=== PATIENT | female | born 1955 | race African-American/Black ===

== ENCOUNTER 2016-07-08 17:40 | Inpatient (IN) | payer MEDICARE, MEDICAID ==
[~2016-07-08] VITALS: Ht 152.4 cm; Wt 59.0 kg
[~2016-07-08 17:40] MED LIST: AMOX500T2 PO; ASPI-867 PO; ATOR40TA70 PO; CARB200T6 PO; CLOP75TA33 PO; FERR-43 PO; LEVE1000 PO; LISI-604 PO
[2016-07-08] MEDS ORDERED: LEVETIRACETAM 500MG PREMIX 100 ML IV ONE (18:30)
[2016-07-08 19:11] LABS: CLARITY URINE CLEAR (CLEAR); COLOR URINE YELLOW (YELLOW); GLUCOSE URINE NEGATIVE (NEGATIVE); KETONES URINE NEGATIVE (NEGATIVE); LEUKOCYTE ESTERASE URINE TRACE (NEGATIVE); NITRITE URINE NEGATIVE (NEGATIVE); OCCULT BLOOD URINE NEGATIVE (NEGATIVE); PH URINE 6.5 (4.5-8.0); PROTEIN URINE NEGATIVE (NEGATIVE); SPECIFIC GRAVITY URINE 1.012 (1.005-1.030); UROBILINOGEN URINE 0.2 E.U./dL (0.2-1.0)
[2016-07-08 19:32] LABS: BASOPHILS % 0.7 % (0.0-2.0); DIFFERENTIAL COMMENT 0; EOSINOPHILS % 0.2 % (0.0-5.0); HEMATOCRIT. 38.7 % (36.0-48.0); HEMOGLOBIN. 12.9 g/dL (12.0-16.0); LYMPHOCYTES % 14.8 % (20.0-50.0); MEAN CORPUSCULAR HEMOGLOBIN 33.8 pg (28.0-32.0); MEAN CORPUSCULAR HGB CONC 33.5 g/dL (31.0-37.0); MEAN CORPUSCULAR VOLUME 101.1 fL (81.0-99.0); MEAN PLATELET VOLUME 6.3 fl (7.4-10.4); MONOCYTES % 7.9 % (2.0-8.0); NEUTROPHILS % 76.4 % (40.0-76.0); PLATELET 246 x1000/uL (130-400); RED BLOOD CELL COUNT 3.82 mill/uL (4.2-5.4); RED CELL DISTRIBUTION WIDTH 13.6 % (11.6-14.6); WHITE BLOOD COUNT 10.2 x1000/uL (4.5-11.0)
[2016-07-08 19:37] LABS: PROTHROMBIN TIME 10.5 sec
[2016-07-08 19:39] LABS: ALBUMIN 4.3 g/dL (3.4-5.0); ANION GAP 16; CARBON DIOXIDE 26 mEq/L (21-32); CHLORIDE 94 mEq/L (98-107); INDEX HEMOLYSI 1 (1-3); INDEX ICTERIC 1 (1-4); INDEX LIPEMIC 1 (1-3); UREA NITROGEN BLOOD 10 mg/dL (7-21)
[2016-07-08 19:39] LABS: BACTERIA URINE 2+; RBC URINE NONE SEEN /hpf (0-2); SQUAMOUS EPITHELIAL CELL URINE RARE /lpf (RARE/1+); WBC URINE 0-2 /hpf (0-2)
[2016-07-08 19:44] LABS: ALANINE AMINOTRANSFERASE 28 IU/L (13-61); eGFR > 60 mL/min (>60)
[2016-07-08] MEDS ORDERED: TRAMADOL 50MG TABLET PO PRN (21:00)
[2016-07-08] MEDS ORDERED: MAGNESIUM/ALUMINUM HYDROXIDE/SIMETHICONE 30ML UDC PO PRN (21:00)
[2016-07-08] MEDS ORDERED: ONDANSETRON HCL 4MG/2ML VIAL IV PRN (21:00)
[2016-07-08] MEDS ORDERED: ACETAMINOPHEN 325MG TABLET PO PRN (21:00)
[2016-07-08] MEDS ORDERED: GUAIFENESIN 200MG/10ML SUGAR FREE UDC PO PRN (21:00)
[2016-07-08] MEDS ORDERED: DIPHENHYDRAMINE 50MG/ML VIAL IV PRN (21:00)
[2016-07-08] MEDS ORDERED: IPRATROPIUM/ALBUTEROL 0.5-3(2.5)MG/3ML NEB INH PRN (21:00)
[2016-07-08] MEDS ORDERED: CLONIDINE 0.1MG TABLET PO PRN (21:00)
[2016-07-08] MEDS ORDERED: LORAZEPAM 2MG/ML CPJ IV PRN (21:00)
[2016-07-08] MEDS ORDERED: NITROGLYCERIN 0.4MG TABLET SL SL PRN (21:00)
[2016-07-08] MEDS ORDERED: ZOLPIDEM TARTRATE 5MG TABLET PO PRN (22:30)
[2016-07-08 22:53] LABS: CREATINE KINASE 114 IU/L (26-192); CREATINE KINASE MB FRACTION 0.9 ng/mL (0.5-3.6); INDEX HEMOLYSI 1 (1-3); TROPONIN I < 0.02 ng/mL (0.00-0.04)
[2016-07-08] MEDS ORDERED: NA PHOS,M-B/NA PHOS,DI-BA ENEMA 118ML PR PRN (23:00)
[2016-07-08] MEDS: ATORVASTATIN CALCIUM 10MG TABLET PO SCH (23:06)
[2016-07-08] MEDS ORDERED: LIDOCAINE HCL/EPINEPHRINE 1%-EPI 1:100,000 30 ML VIAL INFIL ONE (23:15)
[2016-07-09] VITALS: BP 147/74
[2016-07-09] LABS: FOLIC ACID (FOLATE) SERUM > 20.00 ng/mL (>5.38); INDEX HEMOLYSI 4 (1-3); VITAMIN B12 SERUM 702 pg/mL (211-911)
[2016-07-09 04:00] VITALS: BP 101/64
[2016-07-09 05:00] LABS: *AMPHETAMINES SCREEN URINE NEGATIVE (NEGATIVE); *BARBITURATES SCREEN URINE NEGATIVE (NEGATIVE); *BENZODIAZEPINES SCREEN URINE NEGATIVE (NEGATIVE); *COCAINE SCREEN URINE NEGATIVE (NEGATIVE); CANNABINOID URINE SCREEN NEGATIVE (NEGATIVE); ECSTASY MDMA SCREEN URINE NEGATIVE (NEGATIVE); METHADONE URINE SCREEN NEGATIVE (NEGATIVE); OPIATES URINE SCREEN NEGATIVE (NEGATIVE); PHENCYCLIDINE URINE SCREEN NEGATIVE (NEGATIVE)
[2016-07-09 07:13] LABS: INDEX HEMOLYSI 1 (1-3)
[2016-07-09 07:14] LABS: CREATINE KINASE 117 IU/L (26-192); CREATINE KINASE MB FRACTION 0.6 ng/mL (0.5-3.6); TROPONIN I < 0.02 ng/mL (0.00-0.04)
[2016-07-09] MEDS ORDERED: CARBAMAZEPINE 100MG TABLET CHEW PO SCH (08:10)
[2016-07-09] MEDS: LISINOPRIL 20MG TABLET PO SCH ×2 (09:00→21:00)
[2016-07-09] MEDS ORDERED: PHENYTOIN SODIUM 1,000 MG in SODIUM CHLORIDE 0.9% 100 ML IV NR (11:00)
[2016-07-09 12:00] VITALS: BP 96/47
[2016-07-09] MEDS: CLOPIDOGREL 75MG TABLET PO SCH (13:04)
[2016-07-09] MEDS: ENOXAPARIN 40MG/0.4ML SYR SUBCUT SCH (13:04)
[2016-07-09] MEDS: PANTOPRAZOLE SODIUM 40 MG/VIAL IV SCH (13:05)
[2016-07-09] MEDS: ASPIRIN 325MG EC TABLET PO SCH (13:05)
[2016-07-09] MEDS: LEVETIRACETAM 500MG TABLET PO SCH ×2 (13:05→21:39)
[2016-07-09] MEDS: ZINC SULFATE 220 MG ( 50 ) CAPSULE PO SCH (13:05)
[2016-07-09 16:00] VITALS: BP 104/66
[2016-07-09] MEDS ORDERED: CARBAMAZEPINE 200MG TABLET PO SCH (18:10)
[2016-07-09 20:00] VITALS: BP 108/64
[2016-07-09] MEDS: ATORVASTATIN CALCIUM 10MG TABLET PO SCH (21:38)
[2016-07-10] VITALS: BP 107/76
[2016-07-10 04:00] VITALS: BP 101/67
[2016-07-10 08:00] VITALS: BP 102/65
[2016-07-10] MEDS: LEVETIRACETAM 500MG TABLET PO SCH ×2 (08:34→21:00)
[2016-07-10] MEDS: CLOPIDOGREL 75MG TABLET PO SCH (08:34)
[2016-07-10] MEDS: PANTOPRAZOLE SODIUM 40 MG/VIAL IV SCH (08:34)
[2016-07-10] MEDS: ZINC SULFATE 220 MG ( 50 ) CAPSULE PO SCH (08:34)
[2016-07-10] MEDS: ASPIRIN 325MG EC TABLET PO SCH (08:34)
[2016-07-10] MEDS: LISINOPRIL 20MG TABLET PO SCH ×2 (08:34→20:56)
[2016-07-10] MEDS: ENOXAPARIN 40MG/0.4ML SYR SUBCUT SCH (08:34)
[2016-07-10] MEDS: CARBAMAZEPINE 200MG TABLET PO SCH ×2 (10:56→21:00)
[2016-07-10 12:00] VITALS: BP 95/60
[2016-07-10 16:00] VITALS: BP 99/62
[2016-07-10 20:00] VITALS: BP 122/75
[2016-07-10] MEDS: ATORVASTATIN CALCIUM 10MG TABLET PO SCH (20:59)
[2016-07-10] MEDS: PHENYTOIN SODIUM EXTENDED 100MG CAPSULE PO SCH (21:00)
[2016-07-11] VITALS: BP 95/68
[2016-07-11 04:00] VITALS: BP 109/64
[2016-07-11 08:03] VITALS: BP 97/59
[2016-07-11] MEDS: LISINOPRIL 20MG TABLET PO SCH ×3 (09:00→21:22)
[2016-07-11] MEDS: CLOPIDOGREL 75MG TABLET PO SCH (09:18)
[2016-07-11] MEDS: DOCUSATE SODIUM 100MG CAPSULE PO PRN (09:18)
[2016-07-11] MEDS: ENOXAPARIN 40MG/0.4ML SYR SUBCUT SCH (09:19)
[2016-07-11] MEDS: ASPIRIN 325MG EC TABLET PO SCH (09:19)
[2016-07-11] MEDS: CARBAMAZEPINE 200MG TABLET PO SCH ×2 (09:20→21:22)
[2016-07-11] MEDS: ZINC SULFATE 220 MG ( 50 ) CAPSULE PO SCH (09:26)
[2016-07-11] MEDS: LEVETIRACETAM 500MG TABLET PO SCH ×2 (09:26→21:22)
[2016-07-11] MEDS: PANTOPRAZOLE SODIUM 40 MG/VIAL IV SCH (09:34)
[2016-07-11 12:00] VITALS: BP 99/63
[2016-07-11 16:00] VITALS: BP 121/66
[2016-07-11 20:00] VITALS: BP 129/81
[2016-07-11] MEDS: ATORVASTATIN CALCIUM 10MG TABLET PO SCH (21:22)
[2016-07-11] MEDS: PHENYTOIN SODIUM EXTENDED 100MG CAPSULE PO SCH (21:22)
[2016-07-12] VITALS: BP 127/70
[2016-07-12 04:00] VITALS: BP 121/69
[2016-07-12 06:03] LABS: HEMATOCRIT 35.2 % (36.0-48.0); HEMOGLOBIN 11.8 g/dL (12.0-16.0); MEAN CORPUSCULAR HEMOGLOBIN 33.7 pg (28.0-32.0); MEAN CORPUSCULAR HGB CONC 33.6 g/dL (31.0-37.0); MEAN CORPUSCULAR VOLUME 100.4 fL (81.0-99.0); PLATELET 238 x1000/uL (130-400); RED CELL DISTRIBUTION WIDTH 13.8 % (11.6-14.6); WHITE BLOOD COUNT 5.7 x1000/uL (4.5-11.0)
[2016-07-12 08:00] VITALS: BP 95/60
[2016-07-12] MEDS: PANTOPRAZOLE SODIUM 40 MG/VIAL IV SCH (08:44)
[2016-07-12] MEDS: LISINOPRIL 20MG TABLET PO SCH ×2 (09:03→21:00)
[2016-07-12] MEDS: DOCUSATE SODIUM 100MG CAPSULE PO PRN (09:03)
[2016-07-12] MEDS: ZINC SULFATE 220 MG ( 50 ) CAPSULE PO SCH (09:03)
[2016-07-12] MEDS: ASPIRIN 325MG EC TABLET PO SCH (09:03)
[2016-07-12] MEDS: CARBAMAZEPINE 200MG TABLET PO SCH ×2 (09:03→21:03)
[2016-07-12] MEDS: LEVETIRACETAM 500MG TABLET PO SCH ×3 (09:03→21:02)
[2016-07-12] MEDS: ENOXAPARIN 40MG/0.4ML SYR SUBCUT SCH (09:04)
[2016-07-12] MEDS: CLOPIDOGREL 75MG TABLET PO SCH (09:04)
[2016-07-12 12:15] VITALS: BP 95/51
[2016-07-12 16:00] VITALS: BP 98/62
[2016-07-12 20:00] VITALS: BP 98/59
[2016-07-12] MEDS: PHENYTOIN SODIUM EXTENDED 100MG CAPSULE PO SCH (21:02)
[2016-07-12] MEDS: ATORVASTATIN CALCIUM 10MG TABLET PO SCH (21:03)
[2016-07-13] VITALS: BP 80/50
[2016-07-13 04:00] VITALS: BP 100/56
[2016-07-13 08:00] VITALS: BP 93/60
[2016-07-13] MEDS: ENOXAPARIN 40MG/0.4ML SYR SUBCUT SCH (08:35)
[2016-07-13] MEDS: ASPIRIN 325MG EC TABLET PO SCH (08:35)
[2016-07-13] MEDS: LEVETIRACETAM 500MG TABLET PO SCH (08:35)
[2016-07-13] MEDS: CARBAMAZEPINE 200MG TABLET PO SCH (08:35)
[2016-07-13] MEDS: CLOPIDOGREL 75MG TABLET PO SCH (08:35)
[2016-07-13] MEDS: ZINC SULFATE 220 MG ( 50 ) CAPSULE PO SCH (08:35)
[2016-07-13] MEDS: LISINOPRIL 20MG TABLET PO SCH (08:36)
[2016-07-13] MEDS ORDERED: FAMOTIDINE 20MG TABLET PO SCH (09:00)
[2016-07-13 12:00] VITALS: BP 111/64
[2016-07-13 13:38] VITALS: BP 111/64
== END 2016-07-13 14:30 | disposition home or self-care (01) | DRG 101 ==
LOC: ER 17:41 → 7WST 20:42 → SUPCPDRO 20:48
PROVIDERS: ADMIT Internal Medicine; ATTEND Internal Medicine
PROC: 4A00X4Z Measurement of Central Nervous Electrical Activity, External Approach (ICD-10-PCS; principal; 2016-07-09)
DX: G40.901 Epilepsy, unspecified, not intractable, with status epilepticus (principal); E87.1 Hypo-osmolality and hyponatremia; I69.351 Hemiplegia and hemiparesis following cerebral infarction affecting right dominant side; E78.00 Pure hypercholesterolemia, unspecified; S09.90XA Unspecified injury of head, initial encounter; T42.1X5A Adverse effect of iminostilbenes, initial encounter; W18.30XA Fall on same level, unspecified, initial encounter; I10 Essential (primary) hypertension; Z79.899 Other long term (current) drug therapy; Y93.89 Activity, other specified; Y92.89 Other specified places as the place of occurrence of the external cause; Y99.8 Other external cause status; Z79.82 Long term (current) use of aspirin
CPT/HCPCS: 36415; 70450; 70486; 70551; 71010; 80053; 80061; 80156; 80305; 81001; 82542; 82550; 82553; 82607; 82746; 83036; 84443; 84484; 85025; 85027; 85610; 93005; 93970; 96374; 97112; 97116; 97162; 97167; 97535; 99285; C9113; J1165; J1650; J1953; J2060; J7050